=== PATIENT | female | born 1990 ===

== ENCOUNTER 2021-07-04 21:52 | Emergency (ER) | payer MEDICAID ==
[2021-07-04] MEDS ORDERED: Ondansetron 4 MG/2 ML SDV IVPUSH ONE (22:36)
[2021-07-04] MEDS ORDERED: Alum Hydroxide/Mag Hydroxide 15 ML, Lidocaine 2% 15 ML PO ONE ×2 (22:36)
[2021-07-04] MEDS ORDERED: Sodium Chloride 0.9% 10 ML Syringe FLUSH PRN (22:36)
[2021-07-04] MEDS ORDERED: Morphine 4 MG/ML VIAL IM ONE (22:36)
[2021-07-04] MEDS ORDERED: Morphine 2 MG/ML SYRINGE IVPUSH STA (22:38)
[2021-07-04] MEDS ORDERED: Sodium Chloride 0.9% 1,000 ML IV SCH (22:45)
[2021-07-04] MEDS ORDERED: Iopamidol 755 Mg/ML 100 ML Bottle IV ONE (22:49)
[2021-07-04] MEDS ORDERED: Morphine 2 MG/ML SYRINGE IVPUSH ONE (23:53)
[2021-07-05] MEDS ORDERED: Potassium Chloride 20 MEQ Tab.ER PO STA (00:53)
--- NOTE | 2021-07-05 01:01 | EDM.PDOC ---
ED HPI GENERAL MEDICAL PROBLEM - General Chief Complaint: Gastrointestinal Problem Stated Complaint: VOMITING Time Seen by Provider: 07/04/21 22:10 Source of Information: Reports: Patient History Limitations: Reports: No Limitations - History of Present Illness INITIAL COMMENTS - FREE TEXT/NARRATIVE: Patient presented to the ED because of N/V x2 months and today had diarrhea. Her nausea is on and off usually associated with epigastric pain. There is no urinary symptoms, no fever or chills. She also c/o bilateral adnexal pain which comes and goes. Abdominal Pain Score (Numeric/FACES): 7 - Related Data Allergies Allergy/AdvReac Type Severity Reaction Status Date / Time naproxen [From Aleve] Allergy Rash Verified 07/04/21 22:33 Home Meds: Home Meds Pantoprazole Sodium [Protonix] 20 mg PO DAILY #30 tablet.dr 07/05/21 [Rx] Promethazine [Phenergan] 25 mg PO Q6H PRN #30 tab 07/05/21 [Rx] traMADol [Ultram] 100 mg PO Q6H PRN #15 tab 07/05/21 [Rx] Past Medical History Respiratory History: Reports: Asthma Genitourinary History: Reports: UTI, Recurrent Psychiatric History: Reports: Anxiety Endocrine/Metabolic History: Reports: Hypothyroidism Hematologic History: Reports: Sickle Cell Anemia - Past Surgical History GI Surgical History: Reports: Cholecystectomy Social & Family History - Caffeine Use Caffeine Use: Reports: None - Recreational Drug Use Recreational Drug Use: No ED ROS GENERAL - Review of Systems Review Of Systems: See Below Constitutional: Reports: No Symptoms HEENT: Reports: No Symptoms, Vertigo Cardiovascular: Reports: No Symptoms Endocrine: Reports: No Symptoms GI/Abdominal: Reports: Abdominal Pain, Diarrhea, Nausea, Vomiting : Reports: No Symptoms Musculoskeletal: Reports: No Symptoms Skin: Reports: No Symptoms Neurological: Reports: No Symptoms Psychiatric: Reports: No Symptoms ED EXAM, GI/ABD - Physical Exam Exam: See Below Exam Limited By: No Limitations General Appearance: Alert, No Apparent Distress Ears: Normal External Exam, Normal Canal, Hearing Grossly Normal, Normal TMs Nose: Normal Inspection, Normal Mucosa, No Blood Throat/Mouth: Normal Inspection, Normal Lips, Normal Teeth Head: Atraumatic, Normocephalic Neck: Normal Inspection, Supple, Non-Tender, Full Range of Motion Respiratory/Chest: No Respiratory Distress, Lungs Clear, Normal Breath Sounds, No Accessory Muscle Use, Chest Non-Tender Cardiovascular: Normal Peripheral Pulses, Regular Rate, Rhythm, No Edema, No Gallop GI/Abdominal Exam: Normal Bowel Sounds, Soft, No Organomegaly, No Distention, Other (epigastric tenderness) Back Exam: Normal Inspection, Full Range of Motion Extremities: Normal Inspection, Normal Range of Motion, Non-Tender, No Pedal Edema, Normal Capillary Refill Neurological: Alert, Oriented, CN II-XII Intact, Normal Cognition, Normal Gait, Normal Reflexes, No Motor/Sensory Deficits Psychiatric: Normal Affect, Normal Mood Course - Vital Signs Text/Narrative:: Lab/CT abd/pelvis result was reviewed and discussed with patient NS 1 L bolus GI cocktail PO x1 Morphine 4 mg IV x1 Morphine 2 mg IV x1 Zofran 4 mg IV x1 Klor con 40 meq po x1 Last Recorded V/S: Last Vital Signs Temp 36.6 C 07/05/21 01:23 Pulse 74 07/05/21 01:23 Resp 18 07/05/21 01:23 BP 120/72 07/05/21 01:23 Pulse Ox 100 07/05/21 01:23 - Orders/Labs/Meds Orders: Active Orders 24 hr Category Date Time Status Abdomen Pelvis w Cont [CT] Stat Exams 07/04/21 22:36 Taken Saline Lock Insert [OM.PC] Routine Oth 07/04/21 22:36 Ordered Labs: Laboratory Tests 07/04/21 07/04/21 07/04/21 Range/Units 22:30 22:45 22:45 WBC 7.7 (3.0-10.3) x10-3/uL RBC 3.41 L (3.60-5.20) x10(6)uL Hgb 11.5 (11.4-15.5) g/dL Hct 34.8 (34.2-48.2) % MCV 101.9 H (76.7-100.5) fL MCH 33.7 (23.9-33.9) pg MCHC 33.1 (31.9-34.8) g/dL RDW 19.1 H (12.3-16.5) % Plt Count 289 (151-488) x10(3)uL MPV 7.8 (7.1-12.4) fL Neut % (Auto) 75.2 (30.8-76.2) % Lymph % (Auto) 18.0 L (18.4-52.1) % [place] % (Auto) 5.9 (4.4-15.7) % Eos % (Auto) 0.6 (0.6-8.1) % Baso % (Auto) 0.3 (0.2-1.5) % Neut # (Auto) 5.8 (1.5-6.3) x10-3/uL Lymph # (Auto) 1.4 (1.0-4.4) x10-3/uL [place] # (Auto) 0.5 (0.3-1.0) x10-3/uL Eos # (Auto) 0.0 (0.0-0.8) x10-3/uL Baso # (Auto) 0.0 (0.0-0.1) x10-3/uL Sodium 141 (135-145) mmol/L Potassium 3.3 L (3.5-5.3) mmol/L Chloride 106 (100-110) mmol/L Carbon Dioxide 28 (21-32) mmol/L BUN 8 (7-18) mg/dL Creatinine 0.7 (0.55-1.02) mg/dL Est Cr Clr Drug Dosing 92.94 mL/min Estimated GFR (MDRD) > 60 (>60) BUN/Creatinine Ratio 11.4 (9-20) Glucose 82 (80-116) mg/dL Calcium 8.1 L (8.6-10.2) mg/dL Total Bilirubin 0.6 (0.1-1.3) mg/dL AST 16 (5-25) IU/L ALT 27 (12-36) U/L Alkaline Phosphatase 94 (56-112) IU/L Total Protein 6.8 (6.0-8.0) g/dL Albumin 3.3 L (3.5-5.2) g/dL Globulin 3.5 g/dL Albumin/Globulin Ratio 0.9 Amylase 72 (25-115) U/L Lipase (73-393) U/L Urine Color Yellow (YELLOW) Urine Appearance Clear (CLEAR) Urine pH 6.0 (5.0-6.5) Ur Specific [place] 1.020 (1.010-1.025) Urine Protein Negative (NEGATIVE) mg/dL Urine Glucose (UA) Normal (NORMAL) mg/dL Urine Ketones Negative (NEGATIVE) mg/dL Urine Occult Blood Moderate H (NEGATIVE) Urine Nitrite Negative (NEGATIVE) Urine Bilirubin Negative (NEGATIVE) Urine Urobilinogen Normal (NEGATIVE) mg/dL Ur Leukocyte Esterase Negative (NEGATIVE) Urine RBC 0-5 (0-5) Urine WBC 0-5 (0-5) Ur Squamous Epith Cells Few H (NS,R,O) Urine Bacteria Few H (NS) 07/04/21 Range/Units 22:45 WBC (3.0-10.3) x10-3/uL RBC (3.60-5.20) x10(6)uL Hgb (11.4-15.5) g/dL Hct (34.2-48.2) % MCV (76.7-100.5) fL MCH (23.9-33.9) pg MCHC (31.9-34.8) g/dL RDW (12.3-16.5) % Plt Count (151-488) x10(3)uL MPV (7.1-12.4) fL Neut % (Auto) (30.8-76.2) % Lymph % (Auto) (18.4-52.1) % [place] % (Auto) (4.4-15.7) % Eos % (Auto) (0.6-8.1) % Baso % (Auto) (0.2-1.5) % Neut # (Auto) (1.5-6.3) x10-3/uL Lymph # (Auto) (1.0-4.4) x10-3/uL [place] # (Auto) (0.3-1.0) x10-3/uL Eos # (Auto) (0.0-0.8) x10-3/uL Baso # (Auto) (0.0-0.1) x10-3/uL Sodium (135-145) mmol/L Potassium (3.5-5.3) mmol/L Chloride (100-110) mmol/L Carbon Dioxide (21-32) mmol/L BUN (7-18) mg/dL Creatinine (0.55-1.02) mg/dL Est Cr Clr Drug Dosing mL/min Estimated GFR (MDRD) (>60) BUN/Creatinine Ratio (9-20) Glucose (80-116) mg/dL Calcium (8.6-10.2) mg/dL Total Bilirubin (0.1-1.3) mg/dL AST (5-25) IU/L ALT (12-36) U/L Alkaline Phosphatase (56-112) IU/L Total Protein (6.0-8.0) g/dL Albumin (3.5-5.2) g/dL Globulin g/dL Albumin/Globulin Ratio Amylase (25-115) U/L Lipase 70 L (73-393) U/L Urine Color (YELLOW) Urine Appearance (CLEAR) Urine pH (5.0-6.5) Ur Specific [place] (1.010-1.025) Urine Protein (NEGATIVE) mg/dL Urine Glucose (UA) (NORMAL) mg/dL Urine Ketones (NEGATIVE) mg/dL Urine Occult Blood (NEGATIVE) Urine Nitrite (NEGATIVE) Urine Bilirubin (NEGATIVE) Urine Urobilinogen (NEGATIVE) mg/dL Ur Leukocyte Esterase (NEGATIVE) Urine RBC (0-5) Urine WBC (0-5) Ur Squamous Epith Cells (NS,R,O) Urine Bacteria (NS) Meds: Medications Discontinued Medications Generic Name Dose Route Start Last Admin Trade Name Freq PRN Reason Stop Dose Admin Al Hydroxide/Mg Hydroxide 15 0 ml 07/04/21 22:36 07/04/21 22:46 ml/ Lidocaine HCl 15 ml PO 07/04/21 22:37 30 ml ONETIME ONE Administration Sodium Chloride 1,000 mls @ 999 mls/hr 07/04/21 22:45 07/04/21 22:53 Normal Saline IV 999 mls/hr ASDIRECTED BAR Administration Iopamidol 100 ml 07/04/21 22:49 07/04/21 23:05 Iopamidol 755 Mg/Ml 100 Ml Bottle IV 07/04/21 22:50 100 ml . DIRECTED ONE Administration Morphine Sulfate 4 mg 07/04/21 22:36 07/04/21 22:43 Morphine 4 Mg/Ml Vial IM 07/04/21 22:37 Not Given ONETIME ONE Morphine Sulfate 4 mg 07/04/21 22:38 07/04/21 22:46 Morphine 2 Mg/Ml Syringe IVPUSH 07/04/21 22:39 4 mg NOW STA Administration Morphine Sulfate 2 mg 07/04/21 23:53 07/04/21 23:55 Morphine 2 Mg/Ml Syringe IVPUSH 07/04/21 23:54 2 mg ONETIME ONE Administration Ondansetron HCl 4 mg 07/04/21 22:36 07/04/21 22:46 Ondansetron 4 Mg/2 Ml Sdv IVPUSH 07/04/21 22:37 4 mg ONETIME ONE Administration Potassium Chloride 40 meq 07/05/21 00:53 07/05/21 01:12 Potassium Chloride 20 Meq Tab.Er PO 07/05/21 00:54 40 meq NOW STA Administration Sodium Chloride 10 ml 07/04/21 22:36 07/04/21 22:50 Sodium Chloride 0.9% 10 Ml Syringe FLUSH 10 ml ASDIRECTED PRN Administration Keep Vein Open Departure - Departure Time of Disposition: 01:15 Disposition: Home, Self-Care 01 Condition: Good Clinical Impression: GERD (gastroesophageal reflux disease), Fatty liver, Ovarian cyst, Hypokalemia - Discharge Information Prescriptions: Promethazine [Phenergan] 25 mg PO Q6H PRN #30 tab PRN Reason: Nausea Pantoprazole Sodium [Protonix] 20 mg PO DAILY #30 tablet. traMADol [Ultram] 100 mg PO Q6H PRN #15 tab PRN Reason: Pain Instructions: Food Choices for Gastroesophageal Reflux Disease, Adult, [id number], Ovarian Cyst, [id number], Gastroesophageal Reflux Disease, Adult, [id number], Nonalcoholic Fatty Liver Disease Diet, Adult Referrals: PCP,None [Primary Care Provider] - Forms: ED Department Discharge Additional Instructions: Please read discharge instructions on GERD/Acid Reflux, Fatty Liver, Ovarian Cyst Read the list of food and beverages to avoid for Acid Reflux Phenergan 25 mg every 6 hours as needed for nausea Protonix/Pantoprazole 40 mg daily for Acid Reflux Tramadol 100 mg with tylenol 1000 mg every 8 hours as needed for pain Follow up as needed Sepsis Event Note (ED) - Evaluation Sepsis Screening Result: No Definite Risk - My Orders Last 24 Hours: My Active Orders 07/04/21 22:36 Abdomen Pelvis w Cont [CT] Stat Saline Lock Insert [OM.PC] Routine - Assessment/Plan Last 24 Hours: My Active Orders 07/04/21 22:36 Abdomen Pelvis w Cont [CT] Stat Saline Lock Insert [OM.PC] Routine
== END 2021-07-05 01:40 | disposition home or self-care (01) ==
LOC: FB.ED 21:52
DX: K21.9 Gastro-esophageal reflux disease without esophagitis (principal); K76.0 Fatty (change of) liver, not elsewhere classified; E87.6 Hypokalemia; N83.209 Unspecified ovarian cyst, unspecified side; E03.9 Hypothyroidism, unspecified; Z79.899 Other long term (current) drug therapy; Z88.8 Allergy status to other drugs, medicaments and biological substances
CPT/HCPCS: 36415; 74177; 80053; 81001; 82150; 83690; 85025; 96374; 96375; 96376; 99284; A9270; J2270; J2405; J7030; Q9967